=== PATIENT | male | born 1980 | race Caucasian/White ===

== ENCOUNTER 2016-09-17 19:59 | Inpatient (IN) | payer OTHER ==
[~2016-09-17] VITALS: Ht 185.4 cm; Wt 108.5 kg
--- NOTE | ~2016-09-17 | EKG ---
[place] [address] [facility] [place] [address] ELECTROCARDIOGRAM REPORT Name: MCKENNA WATSON Room #: 241-P ADM IN M.R.#: [id number] Admission: 09/17/16 Attend Phys: Oswaldo Tellez MD Discharge: Date of : 76 Report #: [id number] THIS REPORT FOR: //name// [facility] ED Test Date: 2016-09-17 Test Time: 20:14:25 Pat Name: MCKENNA WATSON Department: Room: 241 Gender: M Senior Designer/Art Director: Shira YATES : 1980 Requested By: Sarath Eagle Order Number: [id number] MD: David Figueroa Measurements Intervals [place] Rate: 74 P: 48 IA: 213 QRS: 5 QRSD: 132 T: 34 QT: 423 QTc: 470 Interpretive Statements Sinus rhythm Prolonged IA interval IVCD, consider atypical RBBB No previous ECG available for comparison Electronically Signed On 09-18-2016 8:34:36 CDT by David Figueroa [email or web address] <ELECTRONICALLY SIGNED> By: David Figueroa MD, [facility] 09/18/16 0834 13 13 David Figueroa MD, FACC /EPI
[2016-09-17 20:01] VITALS: BP 118/74
[2016-09-17] MEDS ORDERED: FOLIC ACID 1 MG1 MG PO (20:10)
[2016-09-17] MEDS ORDERED: CLOZAPINE ODT150 MG (20:10)
[2016-09-17] MEDS ORDERED: KRISTALOSE10 GM PO (20:11)
[2016-09-17] MEDS ORDERED: LISINOPRIL5 MG (20:12)
[2016-09-17] MEDS ORDERED: OMEPRAZOLE20 M2 PO (20:12)
[2016-09-17] MEDS ORDERED: AMITIZA 24 MCG24 MC1 (20:13)
[2016-09-17] MEDS ORDERED: VITAMIN B COMP1 EACH (20:13)
[2016-09-17] MEDS ORDERED: SENNA PLUS TAB1 EACH (20:14)
[2016-09-17] MEDS ORDERED: LAMICTAL100 MG PO (20:14)
[2016-09-17] MEDS ORDERED: TOPAMAX50 MG PO (20:15)
[2016-09-17] MEDS ORDERED: SODIUM BICARBO650 M3 (20:16)
[2016-09-17] MEDS ORDERED: HALDOL PO (20:16)
[2016-09-17] MEDS ORDERED: CLOZAPINE100 MG PO (20:18)
[2016-09-17] MEDS ORDERED: TOPAMAX 100 MG100 MG PO (20:19)
[2016-09-17] MEDS ORDERED: FLEET ENEMA118 ML RECTAL (20:19)
[2016-09-17] MEDS ORDERED: SIMETHICON CHEW80 M1 PO (20:20)
[2016-09-17] MEDS ORDERED: IBUPROFEN 600600 M1 (20:20)
[2016-09-17] MEDS ORDERED: TRAZODONE 150150 M1 PO (20:21)
[2016-09-17] MEDS ORDERED: HALDOL DEC100 MG/1 M IM (20:23)
[2016-09-17] MEDS ORDERED: BENZTROPINE MES1 MG (20:24)
[2016-09-17 20:26] LABS: ABSOLUTE NEUTROPHILS 9.6 thou/uL (1.4-8.2); BASOPHILS 0.3 % (0.0-2.0); EOSINOPHILS 0.4 % (0.0-3.0); HEMATOCRIT 32.1 % (42.0-52.0); HEMOGLOBIN 11.6 gm/dL (14.0-18.0); LYMPHOCYTES 12.5 % (24.0-44.0); MCH 30.8 pg (26.0-34.0); MCHC 36.1 g/dL (28.0-37.0); MCV 85.4 fL (80.0-100.0); MONOCYTES 7.7 % (1.0-8.0); PLATELET COUNT 177 thou/uL (150-400); POLYS 79.1 % (36.0-66.0); RBC 3.76 mil/uL (4.50-6.00); RDW 12.6 % (10.5-14.5); WBC 12.1 thou/uL (4.0-11.0)
[2016-09-17 20:28] LABS: MANUAL DIFF NO
[2016-09-17 20:38] LABS: ALBUMIN 3.6 g/dL (3.4-5.0); ALKALINE PHOSPHATASE 53 U/L (46-116); ANION GAP 16 mmol/L (7-16); BUN 4 mg/dL (7-18); CALCIUM 7.6 mg/dL (8.5-10.1); CHLORIDE 82 mmol/L (98-107); CO2 17 mmol/L (21-32); CREATININE 0.7 mg/dL (0.7-1.3); GLUCOSE 128 mg/dL (74-106); POTASSIUM 3.2 mmol/L (3.5-5.1); SGOT 56 U/L (15-37); SGPT 28 U/L (30-65); TOTAL BILIRUBIN 0.5 mg/dL (<0.1-1.0); TROPONIN-I < 0.04 ng/mL (<0.04-0.07)
[2016-09-17 20:41] LABS: SODIUM 115 mmol/L (136-145)
[2016-09-17 22:12] VITALS: BP 118/74
[2016-09-17 23:00] VITALS: BP 130/83
[2016-09-17 23:30] VITALS: BP 113/78
[2016-09-18] VITALS (23 sets, daily range): BP systolic 93–148; BP diastolic 57–129
[2016-09-18 00:31] LABS: URINE BILIRUBIN NEGATIVE (Negative); URINE BLOOD NEGATIVE (Negative); URINE GLUCOSE-RANDOM* NEGATIVE (Negative); URINE KETONES NEGATIVE (Negative); URINE LEUKOCYTES-REFLEX NEGATIVE (Negative); URINE PROTEIN (DIPSTICK) NEGATIVE (Negative); URINE SPECIFIC GRAVITY <= 1.005 (1.003-1.035); URINE UROBILINOGEN 0.2 E.U./dl (0.2-1.0)
[2016-09-18 00:32] LABS: URINE COLOR COLORLESS
[2016-09-18 00:39] LABS: AMP/METHAMP Negative (Negative); BARBITURATES Negative (Negative); BENZODIAZEPINES Negative (Negative); COCAINE Negative (Negative); METHADONE Negative (Negative); OPIATES Negative (Negative); PCP Negative (Negative); THC Negative (Negative)
[2016-09-18 01:47] LABS: URINE CREATININE-RANDOM* < 0.2 mg/dL
[2016-09-18 03:07] LABS: HEMATOCRIT 38.2 % (42.0-52.0); HEMOGLOBIN 13.5 gm/dL (14.0-18.0); MCH 30.2 pg (26.0-34.0); MCHC 35.4 g/dL (28.0-37.0); MCV 85.2 fL (80.0-100.0); RBC 4.48 mil/uL (4.50-6.00); RDW 12.6 % (10.5-14.5); WBC 9.5 thou/uL (4.0-11.0)
[2016-09-18 03:40] LABS: ALBUMIN 3.7 g/dL (3.4-5.0); CALCIUM 8.3 mg/dL (8.5-10.1); CREATININE 0.6 mg/dL (0.7-1.3); MAGNESIUM 2.3 mg/dL (1.8-2.4); PHOSPHORUS 4.3 mg/dL (2.5-4.9); POTASSIUM 3.6 mmol/L (3.5-5.1)
[2016-09-18 06:09] LABS: GLYCOHEMOGLOBIN (HGB A1C) 4.6 % (4.8-5.6)
[2016-09-18 09:15] LABS: CALCIUM 8.6 mg/dL (8.5-10.1); CREATININE 0.6 mg/dL (0.7-1.3); POTASSIUM 3.7 mmol/L (3.5-5.1)
[2016-09-18 09:18] LABS: ALBUMIN 3.9 g/dL (3.4-5.0); PHOSPHORUS 3.4 mg/dL (2.5-4.9)
[2016-09-19] VITALS (13 sets, daily range): BP systolic 86–125; BP diastolic 52–82
[2016-09-19 04:48] LABS: HEMATOCRIT 38.1 % (42.0-52.0); HEMOGLOBIN 13.2 gm/dL (14.0-18.0); MCH 30.1 pg (26.0-34.0); MCHC 34.7 g/dL (28.0-37.0); MCV 86.9 fL (80.0-100.0); RBC 4.38 mil/uL (4.50-6.00); RDW 13.2 % (10.5-14.5); WBC 7.3 thou/uL (4.0-11.0)
[2016-09-19 04:59] LABS: CALCIUM 8.5 mg/dL (8.5-10.1); CREATININE 0.6 mg/dL (0.7-1.3)
[2016-09-19] MEDS ORDERED: KEPPRA 500 MG500 M1 PO (07:46)
== END 2016-09-19 15:00 | DRG 640 ==
LOC: ER 19:59 → ICU 21:30 → EROBS 21:30 → ICU 22:25
PROVIDERS: Family Medicine; Hospitalist; Internal Medicine Nephrology; Nurse Practitioner Family; Physician Assistant
DX: E87.1 Hypo-osmolality and hyponatremia (principal); G93.41 Metabolic encephalopathy; E87.6 Hypokalemia; D72.829 Elevated white blood cell count, unspecified; F20.9 Schizophrenia, unspecified; F32.9 Major depressive disorder, single episode, unspecified; K21.9 Gastro-esophageal reflux disease without esophagitis; G47.00 Insomnia, unspecified; F60.9 Personality disorder, unspecified; F65.9 Paraphilia, unspecified; Z79.899 Other long term (current) drug therapy; Z80.9 Family history of malignant neoplasm, unspecified
CPT/HCPCS: 10078